=== PATIENT | female | born 1975 | race Two or more races ===

== ENCOUNTER 2018-05-31 10:15 | Emergency (ER) | payer SELFPAY ==
[2018-05-31] MEDS ORDERED: HYDROCODONE/ACETAMINOPHEN 5-325 MG TABLET PO ONE (10:59)
--- NOTE | 2018-05-31 11:04 | ER Document Report ---
HPI - HPI Patient complains to provider of: Right foot pain Time Seen by Provider: 05/31/18 10:48 Onset/Duration: Persistent Quality of pain: Achy Pain Level: 5 Context: Patient presents complaining of a 3-day history of right posterior heel pain. Patient denies any injuries. Patient states she has been wearing shoes that she is typically 1 in the past without difficulty. Patient denies any increased physical activity. Associated Symptoms: denies: Fever Exacerbated by: Movement, Walking Relieved by: Denies Similar symptoms previously: No Recently seen / treated by doctor: No - ROS ROS below otherwise negative: Yes Systems Reviewed and Negative: Yes All other systems reviewed and negative - CONSTITUTIONAL Constitutional: DENIES: Fever - REPRODUCTIVE Reproductive: DENIES: : - MUSCULOSKELETAL Musculoskeletal: REPORTS: Extremity pain - right foot - DERM Skin Color: Normal Skin Problems: None Past Medical History - General Information source: Patient - Social History Smoking Status: Never Smoker Frequency of alcohol use: None Drug Abuse: None Occupation: Tax preparation Family History: Reviewed & Not Pertinent Patient has suicidal ideation: No Patient has homicidal ideation: No Endocrine Medical History: Reports: Hx Diabetes Mellitus Type 2 Renal/ Medical History: Denies: Hx Peritoneal Dialysis Past Surgical History: Reports: Hx Gastric Bypass Surgery, Hx Tubal Ligation Vertical Provider Document - CONSTITUTIONAL Agree With Documented VS: Yes Exam Limitations: No Limitations General Appearance: WD/WN, No Apparent Distress - HEENT HEENT: Atraumatic, Normocephalic - NECK Neck: Normal Inspection, Supple - RESPIRATORY Respiratory: No Respiratory Distress - CARDIOVASCULAR Pulses: Normal: Dorsalis pedis - BACK Back: Normal Inspection - MUSCULOSKELETAL/EXTREMETIES Musculoskeletal/Extremeties: MAEW, Tender - Tenderness over right Achilles insertion area to the right posterior calcaneus, no overlying erythema. Mild swelling. negative: Eccymosis - NEURO Level of Consciousness: Awake, Alert, Appropriate Motor/Sensory: No Motor Deficit, No Sensory Deficit - DERM Integumentary: Warm, Dry, No Rash Course - Re-evaluation Re-evalutation: 05/31/18 11:02 Patient presents with a pump bump concerning for tendinitis to right foot. No concern for rupture. Patient educated on avoidance of shoes that rubbed this area and encouraged to put a heel lift in her shoe. - Vital Signs Vital signs: Temp Pulse Resp BP Pulse Ox 98.3 F 80 16 145/73 H 99 02/04/19 10:48 05/31/18 10:48 05/31/18 10:48 05/31/18 10:48 05/31/18 10:48 Discharge - Discharge Clinical Impression: Achilles tendinitis Qualifiers: Laterality: right Qualified Code(s): M76.61 - Achilles tendinitis, right leg Condition: Stable Disposition: HOME, SELF-CARE Instructions: Use of Crutches ([facility]), Ice Packs ([facility]), Tendonitis ([facility]) Additional Instructions: Return immediately for any new or worsening symptoms Followup with your primary care provider, call tomorrow to make a followup appointment Please a heel lift in the shoe of your right foot Avoid shoes that put pressure and rub the back of your right foot Follow-up with podiatry for any persistent problems Referrals: FRANCESCA CASTRO DPM [ACTIVE STAFF] - Follow up as needed PADMAJA TELLEZ DPM [ACTIVE STAFF] - Follow up as needed
[2018-05-31 11:40] VITALS: BP 139/72
== END 2018-05-31 11:30 | disposition home or self-care (01) ==
LOC: ER 10:15
DX: M76.61 Achilles tendinitis, right leg (principal); M79.671 Pain in right foot; E11.9 Type 2 diabetes mellitus without complications; Z98.51 Tubal ligation status; Z98.84 Bariatric surgery status
CPT/HCPCS: 99283

== ENCOUNTER 2019-06-28 09:39 | Emergency (ER) | payer SELFPAY ==
--- NOTE | 2019-06-28 09:46 | ER Document Report ---
ED Medical Screen (RME) - General Chief Complaint: Cough Stated Complaint: COUGH,BODYACHES,FEVER Time Seen by Provider: 06/28/19 09:45 Notes: 43-year-old female presents with cough, body aches, fever, headache, neck pain for 3 days. Patient states she also had some nausea/vomiting. Abdomen soft nontender. Lungs clear to auscultation bilaterally. Regular rate and rhythm. I have greeted and performed a rapid initial assessment of this patient. A comprehensive ED assessment and evaluation of the patient, analysis of test results and completion of the medical decision making process with be conducted by additional ED providers. - Related Data Allergies/Adverse Reactions: No Known Allergies Allergy (Verified 05/31/18 10:16) Past Medical History Endocrine Medical History: Reports: Hx Diabetes Mellitus Type 2 Renal/ Medical History: Denies: Hx Peritoneal Dialysis Past Surgical History: Reports: Hx Gastric Bypass Surgery, Hx Tubal Ligation
--- NOTE | 2019-06-28 10:05 | ER Document Report ---
HPI - HPI Time Seen by Provider: 06/28/19 09:45 Pain Level: 3 Context: 43 y/o female presents with nonproductive cough, generalized body aches, fever, chills, nausea, and headache for 3 days. Pt denies abdominal pain or dyspnea. - CONSTITUTIONAL Constitutional: REPORTS: Fever, Chills - EENT EENT: REPORTS: Sore Throat - NEURO Neurology: REPORTS: Headache - RESPIRATORY Respiratory: REPORTS: Coughing - REPRODUCTIVE Reproductive: DENIES: : Past Medical History - Social History Smoking Status: Unknown if Ever Smoked Family History: Reviewed & Not Pertinent Patient has suicidal ideation: No Patient has homicidal ideation: No Endocrine Medical History: Reports: Hx Diabetes Mellitus Type 2 Renal/ Medical History: Denies: Hx Peritoneal Dialysis Past Surgical History: Reports: Hx Gastric Bypass Surgery, Hx Tubal Ligation Vertical Provider Document - CONSTITUTIONAL Agree With Documented VS: Yes Notes: GENERAL: Well-appearing, well-nourished and in no acute distress. HEAD: Atraumatic, normocephalic. EYES: Extraocular movements intact, sclera anicteric, conjunctiva are normal. NECK: Normal range of motion, supple without lymphadenopathy or JVD. Brudzinski negative. LUNGS: Breath sounds clear to auscultation bilaterally and equal. No wheezes rales or rhonchi. HEART: Regular rate and rhythm without murmurs, rubs or gallops. ABDOMEN: Soft, nontender. No guarding, no rebound. No masses appreciated. EXTREMITIES: Normal range of motion, no pitting or edema. No clubbing or cyanosis. NEUROLOGICAL: Cranial nerves II through XII grossly intact. Normal speech, normal gait. PSYCH: Normal mood, normal affect. SKIN: Warm, Dry, normal turgor, no rashes or lesions noted. - INFECTION CONTROL TRAVEL OUTSIDE OF THE [place] IN LAST 30 DAYS: No Course - Re-evaluation Re-evalutation: 06/28/19 nontoxic, well-appearing 43-year-old female presents with flulike symptoms for the past 3 days. Patient states she had a fever T-max 100.2 that she has been taking Tylenol. Lungs clear to auscultation bilaterally. Regular rate and rhythm. PE is otherwise unremarkable. Flu test and chest x-ray ordered. Toradol and Zofran were also ordered. We will also p.o. challenge patient. 03/03/20 10:35 CXR viewed, no pneumonia. 06/28/19 11:09 PO challenge passed. Discussed all results with pt. Given prescription for zofran and return precautions. Pt given follow up with PCP. Pt voices understanding and agrees with plan of care. - Vital Signs Vital signs: Temp Pulse Resp BP Pulse Ox 97.3 F 78 16 166/101 H 97 06/28/19 09:48 06/28/19 09:48 06/28/19 09:48 06/28/19 09:48 06/28/19 09:48 Discharge - Discharge Clinical Impression: Flu-like symptoms Disposition: HOME, SELF-CARE Additional Instructions: Your flu test was negative. Your chest x-ray showed no pneumonia. However your symptoms are most likely consistent with a flu like type illness. There is no treatment that is effective for this diagnosis other than supportive care at home. This includes drinking plenty of fluids, using Tylenol or ibuprofen as needed for fever and discomfort, and Zofran as needed for nausea and vomiting. Please follow closely with you primary care physician the next 1-2 days regarding this diagnosis. Return to the emergency department immediately if you began to have persistent vomiting prevents you from being able to keep fluids down for more than 12 hours, you pass out, you began having difficulty breathing, you become confused, or you have any other symptoms that are wo rrisome to you. Prescriptions: Ondansetron [Zofran Odt 4 mg Tablet] 4 mg PO Q4HP PRN #30 tab.rapdis PRN Reason: Forms: Return to Work Referrals: JIE JOHN MD [COMMUNITY BASED STAFF] - Follow up in 3-5 days [facility] [Provider Group] - Follow up in 3-5 days
[2019-06-28] MEDS ORDERED: ONDANSETRON 4 MG TAB.RAPDIS PO ONE (10:07)
[2019-06-28] MEDS ORDERED: KETOROLAC TROMETHAMINE 60 MG/2 ML SDV IM ONE (10:07)
--- NOTE | 2019-06-28 10:31 | RADIOLOGY REPORT (SQ) ---
EXAM DESCRIPTION: CHEST 2 VIEWS COMPLETED DATE/TIME: 06/28/2019 10:05 am REASON FOR STUDY: cough, fever COMPARISON: Two-view chest 11/02/2013 EXAM PARAMETERS: NUMBER OF VIEWS: two views TECHNIQUE: Digital Frontal and Lateral radiographic views of the chest acquired. RADIATION DOSE: NA LIMITATIONS: none FINDINGS: LUNGS AND PLEURA: No opacities, masses or pneumothorax. No pleural effusion. MEDIASTINUM AND HILAR STRUCTURES: No masses or contour abnormalities. HEART AND VASCULAR STRUCTURES: Heart normal size. No evidence for failure. BONES: No acute findings. HARDWARE: None in the chest. OTHER: No other significant finding. IMPRESSION: NO ACUTE RADIOGRAPHIC FINDING IN THE CHEST. TECHNICAL DOCUMENTATION: JOB ID: [id number] [employer]- All Rights Reserved Reading location - IP/workstation name: [email or web address]
[2019-06-28 10:48] LABS: A TYPE INFLUENZA AG NEGATIVE (NEGATIVE); B INFLUENZA AG NEGATIVE (NEGATIVE)
[2019-06-28 11:18] VITALS: BP 107/52
== END 2019-06-28 11:20 | disposition home or self-care (01) ==
LOC: ER 09:39
DX: R05 Cough (principal); R50.9 Fever, unspecified; R11.0 Nausea; R51 Headache; J02.9 Acute pharyngitis, unspecified; E11.9 Type 2 diabetes mellitus without complications
CPT/HCPCS: 99283; 96372; 36415; 84703; 87804; 71046; J1885; S0119